=== PATIENT | female | born 1935 | race Caucasian/White ===

== ENCOUNTER → 2017-08-27 18:07 | Outpatient (CLI) | payer MEDICARE, OTHER | END | disposition home or self-care (01) | LOC: D.MAMMO 10:15 | DX: Z12.31 Encounter for screening mammogram for malignant neoplasm of breast (principal) ==

== ENCOUNTER → 2017-10-04 14:21 | Outpatient (CLI) | payer MEDICARE, OTHER | END | disposition home or self-care (01) | LOC: D.MRI 14:21 | DX: M25.512 Pain in left shoulder (principal) ==

== ENCOUNTER 2018-09-03 19:00 | Outpatient (CLI) | payer MEDICARE, OTHER | END 2018-09-03 23:59 | disposition home or self-care (01) | LOC: D.MAMMO 19:00 | DX: Z12.31 Encounter for screening mammogram for malignant neoplasm of breast (principal) ==

== ENCOUNTER → 2019-09-04 09:00 | Outpatient (CLI) | payer MEDICARE, OTHER | END | disposition home or self-care (01) | LOC: D.MAMMO 09:00 | PROVIDERS: ATTEND Family Medicine | DX: N63.20 Unspecified lump in the left breast, unspecified quadrant (principal) ==

== ENCOUNTER → 2019-09-22 07:58 | Outpatient (CLI) | payer MEDICARE, OTHER | END | disposition home or self-care (01) | LOC: D.CT 07:58 | PROVIDERS: ATTEND Surgery | DX: N64.4 Mastodynia (principal) ==